=== PATIENT | female | born 1980 | race Caucasian/White ===

== ENCOUNTER → 2020-11-25 | Day surgery (SDC) | payer OTHER | LOC: JD.LAB 09:32 | PROVIDERS: ATTEND Orthopaedic Surgery | DX: Z01.812 Encounter for preprocedural laboratory examination (principal); G56.03 Carpal tunnel syndrome, bilateral upper limbs | CPT/HCPCS: 87641 ==

== ENCOUNTER 2020-11-29 05:53 | Day surgery (SDC) | payer OTHER ==
[~2020-11-29 05:53] MED LIST: Lactated Ringers 1,000 ML IV SCH; Lidocaine 1%/Sod Bicarbonate in NS 8.4% 1 ML Syringe IDERM PRN; Sodium Chloride 0.9% 10 ML Syringe FLUSH PRN
[2020-11-29] MEDS ORDERED: Triamcinolone Acetonide 40 MG/ML 1 ML SDV ONE (06:15)
[2020-11-29] MEDS ORDERED: Bupivacaine 0.25% 10 ML SDV ONE (06:15)
[2020-11-29] MEDS ORDERED: Lidocaine 1% 30 ML SDV ONE (06:16)
--- NOTE | 2020-11-29 06:43 | PCM.PREANE ---
Preanesthetic Assessment - Procedure Proposed Procedure: right carpal tunnel release with left carpal tunnel steroid injection - Anesthesia/Transfusion/Family Hx Anesthesia History: Prior Anesthesia Without Reaction Family History of Anesthesia Reaction: No Transfusion History: No Prior Transfusion(s) - Review of Systems General: No Symptoms Pulmonary: No Symptoms Cardiovascular: No Symptoms Gastrointestinal: No Symptoms Neurological: No Symptoms Other: Reports: Thyroid Problems (nodule) - Physical Assessment NPO Status Date: 11/28/20 NPO Status Time: 22:30 Vital Signs: 122/73 56 97% 98.6 16 Height: 5 ft 5 in Weight: 77 kg ASA Class: 2 Mental Status: Alert & Oriented x3 Airway Class: Mallampati = 1 Dentition: Reports: Normal Dentition Thyro-Mental Finger Breadths: 3 Mouth Opening Finger Breadths: 3 ROM/Head Extension: Full Lungs: Clear to Auscultation, Normal Respiratory Effort Cardiovascular: Regular Rate, Regular Rhythm - Lab Values: Laboratory Last Values Urine HCG, Qual Negative (NEGATIVE) 11/29/20 06:01 - Allergies Allergies/Adverse Reactions: Allergies Allergy/AdvReac Type Severity Reaction Status Date / Time egg Allergy Nausea and Verified 11/26/20 09:27 Vomiting latex Allergy Rash Verified 11/26/20 09:27 morphine Allergy Anxiety Verified 11/26/20 09:27 - Blood Blood Available: No - Acknowledgements Anesthesia Type Planned: MAC Pt an Appropriate Candidate for the Planned Anesthesia: Yes Alternatives and Risks of Anesthesia Discussed w Pt/Guardian: Yes Pt/Guardian Understands and Agrees with Anesthesia Plan: Yes PreAnesthesia Questionnaire Cardiovascular History: Reports: None Respiratory History: Reports: None Gastrointestinal History: Reports: [employer] History: Reports: Endometriosis Other OB/BYN History: ruptured breast implants Endocrine/Metabolic History: Reports: Other (See Below) Other Endocrine/Metabolic History: thyroid nodule Oncologic (Cancer) History: Reports: None - Past Surgical History Endocrine Surgical History: Reports: Thyroid Biopsy Musculoskeletal Surgical History: Reports: Carpal Tunnel - SUBSTANCE USE Tobacco Use Status *Q: Never Tobacco User Tobacco Use Within Last Twelve Months: No Second Hand Smoke Exposure: No Days Per Week of Alcohol Use: 1 Recreational Drug Use History: No - HOME MEDS Home Medications: Home Meds Fish Oil/[place]-3 Fatty Acids [Fish Oil 1,000 MG] 1 cap PO DAILY 11/26/20 [History] Glucosamine [Glucosamine Sulfate] 1 cap PO DAILY 11/26/20 [History] Omeprazole Magnesium [Prilosec Otc] 20 mg PO DAILY 11/26/20 [History] - CURRENT (IN HOUSE) MEDS Current Meds: Current Medications Lactated Ringer's (Ringers, Lactated) 1,000 mls @ 125 mls/hr IV ASDIRECTED ZARIA Stop: 11/29/20 23:00 Lidocaine/Sodium Bicarbonate (Lidocaine 1%/Sod Bicarbonate In Ns 8.4% 1 Ml Syringe) 0.25 ml IDERM ONETIME PRN PRN Reason: Prior to IV Start Stop: 11/29/20 18:00 Sodium Chloride (Sodium Chloride 0.9% 10 Ml Syringe) 10 ml FLUSH ASDIRECTED PRN PRN Reason: Keep Vein Open Stop: 11/29/20 18:00 Discontinued Medications Bupivacaine HCl (Bupivacaine 0.25% 10 Ml Sdv) Confirm Administered Dose 30 ml . ROUTE .STK-MED ONE Stop: 11/29/20 06:16 Lidocaine HCl (Lidocaine 1% 30 Ml Sdv) Confirm Administered Dose 30 ml .ROUTE .STK-MED ONE Stop: 11/29/20 06:17 Triamcinolone Acetonide (Triamcinolone Acetonide 40 Mg/Ml 1 Ml Sdv) Confirm Administered Dose 40 mg .ROUTE .STK-MED ONE Stop: 11/29/20 06:16
[2020-11-29] MEDS ORDERED: Lidocaine 1% 4 ML ONE (06:52)
[2020-11-29] MEDS ORDERED: fentaNYL 100 MCG/2 ML SDV ONE (06:52)
[2020-11-29] MEDS ORDERED: Propofol 200 MG/20 ML SDV ONE (06:53)
[2020-11-29] MEDS ORDERED: Midazolam 1 MG/ML 2 ML SDV ONE (06:53)
[2020-11-29] MEDS ORDERED: Ketorolac 30 MG/ML SDV ONE (07:29)
--- NOTE | 2020-11-29 07:37 | PCM48HPAN ---
Post Anesthesia Note - EVALUATION WITHIN 48HRS OF ANESTHETIC Vital Signs in Normal Range: Yes Patient Participated in Evaluation: Yes Respiratory Function Stable: Yes Airway Patent: Yes Cardiovascular Function Stable: Yes Hydration Status Stable: Yes Pain Control Satisfactory: Yes Nausea and Vomiting Control Satisfactory: Yes Mental Status Recovered: Yes Vital Signs: Last Vital Signs Temp 98.6 F 11/29/20 06:20 Pulse 56 L 11/29/20 06:20 Resp 16 11/29/20 06:20 BP 122/73 11/29/20 06:20 Pulse Ox 97 11/29/20 06:20 0733 114/62 96% 57 14 98.0
--- NOTE | 2020-12-06 16:50 | PCM.OPNOTE ---
- General Post-Op/Procedure Note Date of Surgery/Procedure: 11/29/20 Operative Procedure(s): right carpal tunnel release with left carpal tunnel injection Pre Op Diagnosis: bilateral median nerve compression neuropathy Post-Op Diagnosis: Same Anesthesia Technique: Local, MAC Primary Surgeon: Rito Ceja Anesthesia Provider: Samanta Steele Parallel Computing Software Engineer: Shelley Akers EBL in mLs: 5 Complications: None Condition: Good
--- NOTE | 2020-12-06 17:59 | OR ---
DATE OF OPERATION: 11/29/2020 SURGEON: Rito Ceja MD OPERATION PERFORMED: Right carpal tunnel release with left carpal tunnel injection. PREOPERATIVE DIAGNOSIS: Bilateral median nerve compression neuropathy. POSTOPERATIVE DIAGNOSIS: Bilateral median nerve compression neuropathy. ANESTHESIA: Technique: Local MAC. ANESTHESIA PROVIDER: Samanta Steele CRNA WATER FILTERER HELPER: Shelley Akers PA-C ESTIMATED BLOOD LOSS: Less than 5 mL. COMPLICATIONS: None. CONDITION: Stable. DESCRIPTION OF PROCEDURE: The patient was identified in the preop holding area. Proper site was marked and identified by the surgeon. The patient was taken back to the operating theater where after adequate anesthesia, the patient's right upper extremity was sterilely prepped and draped in the usual sterile fashion. OR time-out was performed. The patient did not receive antibiotics and it is not indicated for soft tissue hand procedure. At this time, the right upper extremity was exsanguinated and an Esmarch was used as a tourniquet on the forearm. At this time, using 1% lidocaine without epinephrine and 0.25% Marcaine without epinephrine, the palmar cutaneous branch of the median nerve was anesthetized and then the incisional site was anesthetized using [place] cardinal line and ulnar border of the fourth digit as reference. Once this had set up, an incision was made. Blunt dissection was taken down to the palmar cutaneous fascia. Palmar cutaneous fascia was incised with a [place] Ira blade. At this time, the transverse carpal ligament was identified. A small rent was made in the transverse carpal ligament with a [place] Ira blade under direct visualization. Resection of the transverse carpal ligament was done distally using tenotomy scissors making sure to stop short of the palmar arch. At this time, attention was turned proximally after it was found to be adequately released. Using the tenotomy scissors keeping the tips ulnar to protect the palmar cutaneous branch of the median nerve, the superficial forearm fascia as well as the transverse carpal ligament were resected proximally. It was found to be adequate release both proximally and distally. At this time, adequate saline was irrigated through the wound. 4-0 nylon sutures were used closure of the skin. The patient was placed in a sterile soft dressing. After this was completed and under sterile technique, 1 mL of 40 mg Kenalog and 2 mL of 0.25% Marcaine were injected to the left carpal tunnel. The patient tolerated all procedures well and sent to PACU in stable condition. GISSEL /[id number]
== END 2020-11-29 08:45 | disposition home or self-care (01) ==
LOC: JD.SDS 05:53
PROVIDERS: ATTEND Orthopaedic Surgery
DX: G56.13 Other lesions of median nerve, bilateral upper limbs (principal); E04.1 Nontoxic single thyroid nodule; Z79.899 Other long term (current) drug therapy; Z91.040 Latex allergy status; Z91.012 Allergy to eggs; Z98.890 Other specified postprocedural states; Z88.5 Allergy status to narcotic agent
CPT/HCPCS: 20526; 64721; 81025; J1885; J2250; J2704; J3010; J3301; J3490; J7120; 01810

== ENCOUNTER 2024-07-07 16:22 | Emergency (ER) | payer OTHER ==
[2024-07-07] MEDS: Alum Hydrox/Mag Hydrox/Simeth 30 ML, Lidocaine 2% 15 ML PO ONE (18:50)
[2024-07-07 18:51] LABS: BASOPHILS PERCENT AUTO 0.2 % (0.0-1.0); EOSINOPHILS ABSOLUTE AUTO 0.1 K/mm3 (0.0-0.4); EOSINOPHILS PERCENT AUTO 0.5 % (0.0-6.0); HEMATOCRIT 41.4 % (37.0-47.0); HEMOGLOBIN 14.1 gm/dl (12.0-16.0); IMMATURE GRAN ABSOLUTE AUTO 0.03 K/mm3 (0.00-0.05); IMMATURE GRAN PERCENT AUTO 0.3 % (0.0-0.4); LYMPHOCYTES ABSOLUTE AUTO 1.8 K/mm3 (1.0-4.8); LYMPHOCYTES PERCENT AUTO 15.1 % (24.0-44.0); MEAN CORPUSCULAR HEMOGLOBIN 31.1 pg (28.0-32.0); MEAN CORPUSCULAR HGB CONC 34.1 g/dl (32.0-36.0); MEAN CORPUSCULAR VOLUME 91.2 fl (83.0-99.0); MEAN PLATELET VOLUME 9.9 fl (9.4-12.3); MONOCYTES ABSOLUTE AUTO 0.8 K/mm3 (0.0-0.8); MONOCYTES PERCENT AUTO 6.9 % (0.0-8.0); NEUTROPHILS ABSOLUTE AUTO 9.2 K/mm3 (1.8-7.7); PLATELET COUNT,PLT 231 K/mm3 (150-400); RED BLOOD CELL COUNT 4.54 M/mm3 (4.10-5.30); WHITE BLOOD CELL COUNT,WBC 11.89 K/mm3 (3.9-11.3)
[2024-07-07] MEDS: Sodium Chloride 0.9% 10 ML Syringe FLUSH PRN (18:51)
[2024-07-07] MEDS: Famotidine 20 MG Tab PO ONE (18:51)
[2024-07-07 19:18] LABS: A/G RATIO 1.2 (1-2); ALBUMIN 3.8 g/dl (3.4-5.0); ANION GAP 13.2 (5-15); BILIRUBIN TOTAL 0.4 mg/dL (0.2-1.0); CALCIUM 8.8 mg/dL (8.5-10.1); CREATININE 0.8 mg/dL (0.55-1.02); EST CRCL DRUG DOSING (CG) 78.3 mL/min; POTASSIUM,K 4.2 mEq/L (3.5-5.1); PROTEIN TOTAL,TP 7.1 g/dl (6.4-8.2)
== END 2024-07-07 20:02 | disposition home or self-care (01) ==
LOC: JD.ED 16:22
DX: R07.9 Chest pain, unspecified (principal); Z91.040 Latex allergy status; Z91.012 Allergy to eggs; Z88.5 Allergy status to narcotic agent; Z79.899 Other long term (current) drug therapy
CPT/HCPCS: 36415; 71045; 80053; 83690; 84484; 84703; 85025; 93005; 99285; A9270; 93010; 99284